=== PATIENT | female | born 1930 | race Caucasian/White ===

== ENCOUNTER 2017-02-27 19:34 | Inpatient (IN) | payer MEDICARE, OTHER ==
--- NOTE | ~2017-02-27 | DS ---
Discharge Summary [facility] [address] [facility] [place]. [address] NAME: JOSE DAVID THOMAS : [birth year] STATUS : DIS IN PAT#: [id number] AGE: 86 ADM/REG DATE : 02/28/17 MR#: [id number] REPORT SERV DATE: 03/15/17 DICTATED BY: ELIGIO PRIETO DATE: 03/14/17 REPORT STATUS : Draft TRANSCRIBED BY: JEFFRY DATE: 03/14/17 Data Collection from hospitalization DISCHARGE DIAGNOSES: 1. Left parietal CVA-acute. 2. Ataxia with a history of multiple falls (recent) likely secondary to left parietal CVA. 3. Wptacvxmzooq-lqyugbp-kaczugncjj. 4. Chronic low back pain. 5. Anxiety disorder. 6. Insomnia. 7. Osteoporosis. 8. Hyperlipidemia. CONSULTATION: 1. Dr. Octavio Fraire. 2. Dr. Gaurang Beasley. PROCEDURES: 1. Loop recorder implantation, 03/02/2017. 2. CT scan of the brain without contrast, 02/27/2017. 3. MRI of the brain without contrast, 02/28/2017. 4. MRI of the cervical spine, 02/28/2017. 5. Carotid blood flow study, 03/02/2017. DISCHARGE MEDICATIONS: Tawanna aspirin 325 mg daily, Lipitor 40 mg at bedtime, Plavix 75 mg daily, Tylenol suppository 325 mg every eight hours as needed, Prinivil 2.5 mg daily, vitamin B12 1000 mcg daily, vitamin D 2000 units daily, Caltrate 600 mg twice a day, Zyrtec 10 mg one tablet daily as needed for sneezing and runny nose, Wamsutter 5/325 half to one tablet as needed for pain. CONDITION AT DISCHARGE: Stable. DISPOSITION: The patient was discharged to [facility] on a mechanical soft diet with thin liquids and activities as instructed. She would follow up with Dr. Gaurang Beasley on 06/06/2017. HOSPITAL COURSE: This is an 86-year-old female who is a resident at [facility] and had had some recent falls according to her family. She had a total of six falls in the last 48 hours. Her family reports that this had not been witnessed so, therefore they were unsure if the patient hit her head. She had had some increased confusion. She was sent to the [facility] for further evaluation. She had a CT scan that did not show any acute bleed or changes and had been given Antivert. Her grandson reports that since her fall on Monday prior to admission, he had been at her bedside and had prevented three more falls. She was transferred to [facility] for further evaluation of her worsening falls, ataxia, and confusion. She was admitted to the hospital at this time for further evaluation and treatment. Upon admission, a CT scan of the brain without contrast was performed. No acute Discharge Summary [place] [id number] [facility] [place]. [address] NAME: JOSE DAVID THOMAS : [birth year] STATUS : DIS IN PAT#: [id number] AGE: 86 ADM/REG DATE : 02/28/17 MR#: [id number] REPORT SERV DATE: 03/15/17 DICTATED BY: ELIGIO PRIETO DATE: 03/14/17 REPORT STATUS : Draft TRANSCRIBED BY: MODL DATE: 03/14/17 intracranial pathology was identified. There was a stable old CVA, anterior left frontal lobe and left posterior parietal lobes. There was a stable large old CVA, right posterior parietal lobes. An MRI of the brain was requested. She would be premedicated with IV Ativan. IV fluids were continued for now. Admission creatinine was 1.22. She is at risk for acute kidney injury. She was currently on stroke protocol. Sequential devices and GABBY hose were placed for DVT prophylaxis. Plavix, aspirin, and simvastatin were continued. We would hold off on resuming CATHY inhibitor even though she was only on a low dose. Megace was going to be discontinued. Tylenol would be resumed for fever and pain control. Admission potassium level was 3.5. The patient was going to remain a DNR code status with limited intervention. The patient was seen by Dr. Octavio Fraire, regarding gait abnormality and concern for stroke versus TIA. The patient was noted to be ataxic. According to her family members, there was mild dysarthria. At her baseline, she does have vascular dementia. Depakote was going to be discontinued as this can cause ataxia issues. An MRI of the brain and cervical spine had been requested. Lab studies would be checked. Aspirin, Plavix, and simvastatin were continued. We were going to check thiamine, vitamin B12, folate, ammonia, CPK, free T4, Depakote level with the morning labs. MRI of the brain without contrast was performed. This showed acute ischemic infarct, superior left parietal lobe at the superior convexity along the midline falx, measuring up to 1.5 x 3.5 cm with no surrounding significant vasogenic edema, hemorrhagic conversion, or mass effect. There were advanced diffuse cerebral involutional changes and moderate deep white matter chronic microvascular ischemic changes. There were multifocal small old infarct. MRI of the cervical spine was also performed. The patient has moderate degenerative disk disease at C4-5 and mild degenerative disk disease at C5-C7. There is no cervical spine fracture or malalignment. There was mild focal central spinal stenosis, C4-5 on the basis of disk osteophyte formation. Orthostatic blood pressures were checked. Occupational Therapy evaluated the patient. On 03/01/2017, T-max was 98.6. Simvastatin has been stopped. Aspirin and Plavix were continued. Lipitor was continued. Echocardiogram was requested as well as a carotid Doppler study. It was felt that the patient may need a loop recorder. She was seen by Dr. Gaurang Beasley regarding loop recorder implant request and acute stroke. Imaging had demonstrated an acute ischemic infarct at the superior left parietal lobe without obvious cause defined to date. Given her history of strokes as well as her acute stroke during this admission and an otherwise fairly functional substrate, consultation placed for implantation of loop recorder. It was felt that she may very well benefit from a loop recorder. This was discussed with the patient and Neurology at length. If her echocardiogram and carotid Dopplers were negative, it would be reasonable to proceed with loop implantation to definitively exclude arrhythmic cause for recurrent strokes. Continued management of her hypertension as well chronic kidney disease by the primary team was also recommended. Physical Therapy evaluated the patient. On 03/02/2017, echocardiogram was performed as well as a carotid blood flow study. Findings were compatible with category 1 disease. Vertebral arteries were patent with antegrade flow. The patient underwent loop recorder implantation by Dr. Parnay Aguila. She tolerated this well. There were no complications. She had had a bowel movement. She did have low back pain. Blood pressure was stable. Discharge planning was performed. On 03/03/2017, she was alert and cooperative. She had no edema. Her abdomen was soft and nontender. Her lungs were clear. She denied shortness of breath, chest pain, nausea, vomiting, or abdominal pain. Hemoglobin A1c was 5.7. Discharge instructions were given. Due to her Discharge Summary [address] [address] NAME: JOSE DAVID THOMAS : [birth year] STATUS : DIS IN PAT#: [id number] AGE: 86 ADM/REG DATE : 02/28/17 MR#: [id number] REPORT SERV DATE: 03/15/17 DICTATED BY: ELIGIO PRIETO DATE: 03/14/17 REPORT STATUS : Draft TRANSCRIBED BY: JEFFRY DATE: 03/14/17 improved and stable condition, she was discharged to [facility] with the above-stated instructions. Information collected by: Cecy Kc I submit the above information as my discharge summary. TG/JEFFRY Eligio Prieto M.D. / [id number] CC: Will Asher MD [facility]
--- NOTE | ~2017-02-27 | CN ---
Consultation Report [facility] [address] [place]. [address] NAME: JOSE DAVID THOMAS : [birth year] STATUS : ADM Clarissa PAT#: [id number] AGE: 86 ADM/REG DATE : 02/27/17 MR#: [id number] REPORT SERV DATE: 02/28/17 DICTATED BY: DATE: REPORT STATUS : Draft TRANSCRIBED BY: MODL DATE: 02/28/17 NEUROLOGY CONSULTATION DATE OF CONSULTATION: 02/28/2017 REASON FOR CONSULT: Gait abnormality, concern for stroke versus TIA. HISTORY OF PRESENT ILLNESS: This is an 86-year-old female presented to [facility] on 02/27/2017 secondary to a three-day duration of problem walking. The patient's family reports that the patient is usually able to ambulate fairly well without significant problems and without needing to use an assistive device or a walker. The patient starting on 02/25/2017, was noted to have increase in a significant difficulty walking with the patient walking all over the place as if she is on a boat. The patient was also noted to be more disoriented, however, no focal deficit was noted. Family also noted patient to have some dysarthria. Patient was evaluated at [facility] and apparently sent back to assisted living facility and was subsequently brought to [facility] for evaluation. The patient since then has sustained several falls with the patient noted to have some chest soreness. The patient's family reports the patient does have baseline vascular dementia since the move to assisted living facility roughly two to three years ago. The patient was started on Depakote secondary to anxiety issues as well as difficulties adapting to [facility] living facility. The patient, otherwise, does not have any history of known seizure disorder or psychiatric issues. No other recent change in her medication was, otherwise, noted. The patient was also noted to have increase in anorexia for the past 12 months. PAST MEDICAL HISTORY: The does have history of prior strokes in the past, but does not appear to have significant focal weakness. The patient's past medical history is significant for history of stroke as well as a vascular dementia. No previous history of seizure was noted. The patient was also noted to have hypercholesterolemia as well as anxiety and hypertension. SOCIAL HISTORY: Denies current tobacco, alcohol, or recreational drug usage. FAMILY HISTORY: Significant for hypertension. REVIEW OF SYSTEMS: At the time of evaluation, review of systems was negative except for those mentioned in the HPI. ALLERGIES: THE PATIENT WAS NOTED TO HAVE MULTIPLE DRUG ALLERGIES INCLUDING CODEINE. HOME MEDICATIONS: Consist of Tylenol, aspirin, calcium carbonate, Zyrtec, vitamin D, Plavix, vitamin B12, Depakote, lisinopril, Megace, Zocor, and trazodone. Consultation Report [place] [id number] [facility] [place]. [address] NAME: JOSE DAVID THOMAS : [birth year] STATUS : ADM Clarissa PAT#: [id number] AGE: 86 ADM/REG DATE : 02/27/17 MR#: [id number] REPORT SERV DATE: 02/28/17 DICTATED BY: DATE: REPORT STATUS : Draft TRANSCRIBED BY: JEFFRY DATE: 02/28/17 PHYSICAL EXAMINATION: VITAL SIGNS: At time of evaluation, patient was noted to have vital signs with T-max of 98.4, heart rate of 51-77, respiration of 17-19, and blood pressure of 111 to 128 over 58 to 72. GENERAL: The patient is well developed, well nourished, in no acute distress. CARDIOVASCULAR: Regular rate and rhythm. No carotid bruits were otherwise auscultated. PULMONARY: Clear to auscultation bilaterally. NEUROLOGIC: Generally, the patient is alert, oriented to person, place, but not to year or month, which according to the family is the patient's baseline. The patient was noted to have some mild dysarthria. At the time of evaluation, was noted to have decreased attention span, difficulty comprehending or following complex commands with the patient noted to have significant difficulties with recall or working memory. The patient was, otherwise, noted to have no aphasia. At the time of evaluation, is able to follow simple commands without significant difficulties, some difficulties with registration. CRANIAL NERVES 2 THROUGH 12: Pupils equal, round, and reactive to light. Horizontal and vertical eye movement was noted with the patient noted to have decreased peripheral vision in the left. The patient was otherwise noted to have no nystagmus at the time of evaluation. The patient denies and did not complain of any diplopia. She was noted to have decreased nasolabial fold on the left, otherwise, midline tongue and symmetric palatal movement. Reports symmetrical facial sensation. Decreased hearing in bilateral ears. The patient was noted to have 5/5 bilateral upper and lower extremity strength. Mild resting tremor was noted especially in the right upper extremity, otherwise, the patient was not noted to have significant asterixis. Normal einxgv-ou-cogx examination without ataxia. Deep tendon reflex was 2+ in bilateral upper extremity, 1+ in bilateral lower extremity. Upgoing toe and bilateral plantar reflexes. The patient was noted to have wide-based gait as well as ataxia. Gait evaluation reports symmetrical sensation bilaterally. LABORATORY STUDIES: Demonstrated white blood cell count of 6.5, hemoglobin of 11.7, hematocrit of 36.2, and platelet count of 150. Chemistry panel: Sodium 137, potassium 3.5, chloride 108, bicarb 22, BUN of 17, creatinine 1.22, glucose of 105, calcium of 9.0. Serum cholesterol 129, HDL 52, LDL 59, triglyceride of 92. Hemoglobin A1c was noted to be 5.7. Urinalysis demonstrated negative leukocyte esterase, negative nitrite. CT scan of the brain was performed, which demonstrated generalized atrophy as well as previous stroke in the left temporoparietal area as well as the right parietal area. No acute process was otherwise seen. IMPRESSION: Gait abnormality. The patient was noted to be ataxic. On examination, with the patient's symptoms ongoing for the past three to four days and is stable, persistent, but without significant improvement. The patient was not noted to have any focal weakness. On examination or per family members, was noted to have mild dysarthria. At baseline, patient was noted to have a vascular dementia. We will discontinue Depakote as Depakote can cause ataxia issues. We will obtain MRI of the brain as well as a C-spine. Check laboratory studies. We will also obtain PT/OT to evaluate and treat. Concern for possible stroke versus medication side effect versus metabolic etiology. Consultation Report [place] [id number] [facility] [place]. [address] NAME: JOSE DAVID THOMAS : [birth year] STATUS : ADM Clarissa PAT#: [id number] AGE: 86 ADM/REG DATE : 02/27/17 MR#: [id number] REPORT SERV DATE: 02/28/17 DICTATED BY: DATE: REPORT STATUS : Draft TRANSCRIBED BY: MODL DATE: 02/28/17 RECOMMENDATIONS: 1. PT/OT to evaluate and treat. 2. MRI of the brain and C-spine without contrast. 3. Discontinue Depakote. 4. Aspirin, Plavix, and simvastatin for now. 5. We will check thiamine, vitamin B12, folate, ammonia, CPK, free T4, Depakote level with morning labs. [facility]/MODL Octavio Fraire MD / [id number] CC: Ubaldo Connor M.D.
--- NOTE | ~2017-02-27 | HP ---
History And Physical [place] [id number] [facility] [place]. [address] NAME: JOSE DAVID THOMAS : [birth year] STATUS : ADM IN [facility]#: [id number] AGE: 86 ADM/REG DATE : 02/28/17 MR#: [id number] REPORT SERV DATE: 02/28/17 DICTATED BY: ELIGIO PRIETO DATE: 02/28/17 REPORT STATUS : Draft TRANSCRIBED BY: MODIliana DATE: 02/28/17 DATE OF ADMISSION: 02/27/2017 CHIEF COMPLAINT: Multiple falls and poor balance. HISTORY OF PRESENT ILLNESS: The patient is an 86-year-old elderly female, who is a resident of [facility], had some recent fall per family, a total of six falls in the last 48 hours. Family reports that this had not been witnessed, so therefore unsure if the patient hit her head. The patient's grandson at the bedside reports the patient noted to have been walking like "she is boring." The patient has not had any complaint of loss of consciousness. The patient's grandson reports that the patient has had some increased confusion. She was sent to [facility] on Monday for further evaluation. She had a CT scan that did not show any acute bleed or changes and was given Antivert, family were instructed if not better or worse, the patient needs to be further evaluated. The patient's grandson reports that since her fall on Monday, he had been at her bedside and had prevented three more falls. Therefore the patient was transferred to [facility] for further evaluation of her worsening fall, ataxia, and confusion. The patient with vascular dementia. She is very pleasant, but is a poor historian. The patient's grandson is at the bedside giving details and confirmation of the patient medical, family, and social history. PAST MEDICAL HISTORY: Positive for ischemic vascular accident, hyperlipidemia, hypertension, chronic low back pain status post surgery, arthritis, anxiety in which the patient is on Depakote and trazodone. PAST SURGICAL HISTORY: Positive for section, hysterectomy, lumbar spine surgery with rods and plates in either 1997 or 1998, left hip repair on 11/2015. HOME MEDICATION: Include Tylenol p.r.n., aspirin 325 mg daily, calcium carbonate 600 mg twice a day, Zyrtec 10 mg daily, vitamin D 2000 units p.o. daily, Plavix 75 mg daily, vitamin B12 1000 mcg p.o. daily, Depakote 125 mg p.o. twice a day, lisinopril 2.5 mg p.o. daily, Megace 20 mg tablet, simvastatin 20 mg at bedtime, trazodone 50 mg at bedtime as needed. ALLERGIES: CODEINE CAUSES THE PATIENT TO BE SICK TO HER STOMACH, LACTOSE CAUSES THE PATIENT TO BE SICK TO HER STOMACH. SOCIAL HISTORY: The patient denies any history of alcohol or tobacco abuse or illicit drug use. The patient was a resident of [facility] for two years and had moved to the [facility] two weeks ago. The patient is retired, , has one son. FAMILY HISTORY: The patient's sister with diabetes. History And Physical [address] [address] NAME: JOSE DAVID THOMAS : [birth year] STATUS : ADM IN [facility]#: [id number] AGE: 86 ADM/REG DATE : 02/28/17 MR#: [id number] REPORT SERV DATE: 02/28/17 DICTATED BY: ELIGIO PRIETO DATE: 02/28/17 REPORT STATUS : Draft TRANSCRIBED BY: JEFFRY DATE: 02/28/17 REVIEW OF SYSTEMS: The patient with no history of glaucoma or cataract. She had had some prescription glasses, but does not use. The patient with no history of hearing loss or any difficulty swallowing. The patient with lower dentures. No recent upper respiratory infection reported. The patient with history of hypertension. No history of chest pain and the patient denies any chest pain. The patient denies any complaint of shortness of breath, is on trazodone for anxiety. The patient with history of poor appetite, but has had decreased p.o. intake the last few days. The patient's grandson reports the patient has been on appetite stimulants, but this had been ineffective. Report no recent nausea or vomiting. The patient denies any complaint of dysuria. The patient with history of arthritis. She has a history of chronic low back pain. The patient has a metal strip in her lumbar spine that was placed in 1987 or 1998. The patient reports she does not take regular pain medicine. The patient with history of osteoporosis and she receives Reclast infusion. The patient with no history of edema. The patient reports she has some bruising but does not have issue with bleeding. Grandson reports that patient's left chin appears to have redness sustained from her fall and likely had some of the bruising from her fall. The patient denies history of seizure. The patient's grandson reports the patient with history of stroke, has had dizziness and weakness the last 48 hours which he had reported having six falls. Also having low blood pressure with a systolic in the 80s. The patient reports history of headache but occasionally does not take medicine. The patient history with history of anxiety is on Depakote and trazodone. Also the patient with history of claustrophobia. The patient with no history of thyroid or diabetes. The patient is on aspirin and Plavix. Does easily bruise but no bleeding. PHYSICAL EXAMINATION: VITAL SIGN: Temp 98.0, pulse 77, respiratory rate 18, BP of 104/60, sat O2 96% on room air, weight 47.79 kilo. LABORATORY: Chest x-ray on 02/27/2017 showed large hiatal hernia. Similar to previous study. No acute process. CT of the brain without contrast, on 02/27 revealed no acute intracranial pathology identified, advanced diffuse cerebral intracranial changes and mild deep white chronic microvascular ischemic changes compared since 2007. Stable old CVA and anterior left frontal lobe and left posterior parietal lobe, stable. Large old CVA and right posterior parietal lobe, although new from 2006. Urinalysis, clear. Negative nitrite, wbc 1, negative leukocyte, protein of 30, and trace ketone. Hemoglobin A1c of 5.7. CPK 214, and CK-MB 2.7. Repeat CPK this morning was 18.1, CK-MB 1.8. Sodium 137, potassium 3.5, chloride 108, CO2 of 22, BUN 17, creatinine 1.22, and a GFR of 40, glucose of 105. WBC on 02/27 was 8.7, hemoglobin 12.7, hematocrit 38.5, and platelet of 81. / a.m. labs; WBC of 6.5, hemoglobin 11.7, hematocrit 36.2, and platelet of 150. INR 1.2. PT 14.6, and PTT 26.9. GENERAL: The patient is a pleasant, elderly female, in no acute distress noted. HEENT: Normocephalic, atraumatic. Nonicteric bilaterally. No pain on palpation of the neck. PERRL. NECK: Moves without pain. BREAST: No deformity noted. History And Physical [address] [address] NAME: JOSE DAVID THOMAS : [birth year] STATUS : ADM IN PAT#: [id number] AGE: 86 ADM/REG DATE : 02/28/17 MR#: [id number] REPORT SERV DATE: 02/28/17 DICTATED BY: ELIGIO PRIETO DATE: 02/28/17 REPORT STATUS : Draft TRANSCRIBED BY: JEFFRY DATE: 02/28/17 CVS: Regular rate and rhythm. Normal S1, S2. No murmurs. LUNGS: Clear to auscultation bilaterally. No wheezing. ABDOMEN: Soft, nontender. Positive bowel sounds throughout in four quadrants. Old scar noted in the mid abdomen consistent with surgical history. : The patient uses diaper. No discharged noted. Rectal: Not assessed. EXTREMITY: No edema noted in bilateral upper and lower extremity. Noted old ecchymosis in the left lower arm and left lower leg. MUSCULOSKELETAL: Generalized arthritic changes. Strength of 5/5 in bilateral upper and lower extremity. Gait, the patient stable with use of walker but did not assess without walker. SKIN: Left chin redness noted. Left lower arm and left lower leg ecchymosis, old but skin intact. Left upper arm with peripheral IV access, dry and intact. NEURO: Alert and oriented x3. No acute deficit noted. PSYCH: The patient is pleasant. No anxiety noted. ASSESSMENT: 1. Ataxia with multiple falls. 2. Generalized weakness, gait impairment. 3. History of ischemic vascular accident. 4. Hypertension, primary with recent low blood pressure episode. 5. Chronic low back pain status post low back surgery. 6. Anxiety disorder. 7. Hyperlipidemia. 8. Renal insufficiency likely secondary to poor p.o. intake/dehydration. 9. Mild hypokalemia. 10.Failure to thrive, chronic. PLAN: 1. Appreciate consult with Neurology. The patient seen by Neurology today. See initial consult. Reviewed head CT scan of the brain without contrast, on 02/27, see formal results. Question left posterior parietal lobe CVA for acute or chronic. The patient is scheduled for MRI of the brain. The patient with history of claustrophobia will need to premedicate with Ativan IV. 2. Continue IV fluid for now. The patient's admission creatinine was 1.22, which is a sign of renal insufficiency. We will continue fluid for now and monitor labs. The patient is at risk for acute kidney injury. 3. The patient currently on stroke protocol. We will place on sequential device and GABBY hose for DVT prophylaxis. Continue Plavix, aspirin, and simvastatin per Neurology. The patient is at risk for recurrent fall injury. 4. Continue to monitor BP. We will hold off on resuming CATHY inhibitor, even though she is only on low dose. The patient is at risk for further low BP. 5. The patient with history of failure to thrive. We will probably insure the patient have bedside swallow evaluation, and we will discontinue Megace which she takes at home given the patient's son reporting this is ineffective. 6. We will resume Tylenol p.r.n. for fever and pain control. 7. The patient is placed on electrolyte protocol. Admission potassium was 3.5, and we History And Physical [address] [address] NAME: JOSE DAVID THOMAS : [birth year] STATUS : ADM IN PAT#: [id number] AGE: 86 ADM/REG DATE : 02/28/17 MR#: [id number] REPORT SERV DATE: 02/28/17 DICTATED BY: ELIGIO PRIETO DATE: 02/28/17 REPORT STATUS : Draft TRANSCRIBED BY: JEFFRY DATE: 02/28/17 will plan to repeat lab. The patient is at risk for cardiac arrhythmia. 8. Addressed code status with the grandson and still desires the patient to be continued DNR with limited intervention. The patient post form is in chart, was completed on 02/22/2016. We will ensure inpatient POLST form completed. I discussed plan of care with the patient's grandson at the bedside and agree with current plan. The patient is referred to PT/OT for evaluation per neurologist. DICTATED BY: Juju Partida NP CLP/MODL Eligio Prieto M.D. / [id number] CC: Ubaldo Connor M.D.
--- NOTE | ~2017-02-27 | CN ---
Consultation Report [place] [id number] [facility] [place]. [address] NAME: JOSE DAVID THOMAS : [birth year] STATUS : ADM IN PAT#: [id number] AGE: 86 ADM/REG DATE : 02/28/17 MR#: [id number] REPORT SERV DATE: 03/01/17 DICTATED BY: GAURANG NAM DATE: 03/01/17 REPORT STATUS : Draft TRANSCRIBED BY: MODL DATE: 03/01/17 CONSULTATION DATE OF CONSULTATION: 03/01/2017 REASON FOR CONSULTATION: Loop recorder implant request, acute stroke. HISTORY OF PRESENT ILLNESS: Ms. Thomas is an 86-year-old female with a history of previous strokes, hyperlipidemia, hypertension, chronic lower back pain status post surgery, anxiety and CKD, who presented to [facility] two days ago after having days of difficulty with walking. She lives at [facility] where she functions relatively independently per her report. She is a fairly functional woman at baseline per her report, as well as in discussions with Neurology. She had been having increased falls over the past couple days preceding admission, prompting her visit to [facility] for further evaluation and care. She had imaging completed and was seen by Neurology which demonstrated an acute ischemic infarct of the superior left parietal lobe, without obvious cause defined to date. Given her history of strokes as well as her acute stroke during this admission, in an otherwise fairly functional substrate consultation was placed for implantation of a loop recorder. PAST MEDICAL HISTORY: As above. FAMILY HISTORY: Noncontributory for premature cardiovascular disease. SOCIAL HISTORY: The patient denies drinking alcohol, smoking, or doing drugs. She lives at the [facility]. She functions independently and without issue under normal circumstances. ALLERGIES: PER EMR. HOME MEDICATIONS: 1. Tylenol. 2. Aspirin. 3. Calcium. 4. Zyrtec. 5. Vitamin D. 6. Plavix. 7. Vitamin B12. 8. Depakote. 9. Lisinopril. 10.Megace. 11.Zocor. 12.Desyrel. Consultation Report [place] [id number] [place]. [address] NAME: JOSE DAVID THOMAS : [birth year] STATUS : ADM IN PAT#: [id number] AGE: 86 ADM/REG DATE : 02/28/17 MR#: [id number] REPORT SERV DATE: 03/01/17 DICTATED BY: GAURANG NAM DATE: 03/01/17 REPORT STATUS : Draft TRANSCRIBED BY: MODIliana DATE: 03/01/17 REVIEW OF SYSTEMS: As above, all other systems otherwise negative. PHYSICAL EXAMINATION: VITAL SIGNS: Blood pressure 164/92, pulse 54, sinus rhythm, temperature 97.9. GENERAL: Age appropriate alert and oriented x2 (not oriented to time). HEAD AND NECK: Normocephalic, atraumatic. Dry mucous membranes. LUNGS: Clear to auscultation bilaterally, no wheezes, rales or rhonchi. CV: Regular rhythm, normal S1/S2, no murmurs, rubs or gallops. ABD: Soft, non-tender, non-distended, no rebound or guarding. EXTREMITIES: Warm, dry. 1+ pulses throughout. SKIN: Warm, dry and intact; no rash. PERTINENT TEST FINDINGS: Potassium 3.7, creatinine 0.82 down from 1.22. Hemoglobin 11.7, white blood cell count 6.5. Troponin 0.04 x3. CK 168. An admission EKG demonstrates sinus rhythm with a ventricular rate of 73 beats per minute and occasional PVCs. There are no acute ischemic ST/T changes. Echocardiogram pending. Carotid Dopplers pending. Head imaging as above per HPI. IMPRESSION AND PLAN: Ms. Thomas is a pleasant 86-year-old female with a history of strokes, who presents with worsening gait/falls over the past two days in the setting of a new acute left parietal stroke of undetermined etiology. Given her relatively preserved functional status as well as unremarkable workup thus far (however, echo and carotid Doppler this admission still pending), I believe she may very well benefit from a loop recorder. I discussed this at length with Neurology as well as with the patient, and if her echocardiogram and carotid Dopplers are negative today, it will be reasonable for her to proceed with a loop implantation to definitively exclude arrhythmic cause for her recurrent strokes. Otherwise, continued management of hypertension as well as CKD per the primary team is recommended. ASTRID/JEFFRY Gaurang Nam MD / [id number] CC: Ubaldo Connor M.D.
[2017-02-27 16:00] LABS: BASOPHILS 0.2 %; BASOPHILS ABSOLUTE 0.02 10/3/uL (0.0-0.16); EOSINOPHILS 1.2 %; ER CBC TAT 0 Hrs 16 Mins; HEMOGLOBIN 12.7 g/dL (12.0-16.0); IMMATURE GRANULOCYTES 0.3 %; IMMATURE GRANULOCYTES ABSOLUTE 0.03 10/3/uL (0.0-0.11); LYMPHOCYTES 22.7 %; LYMPHOCYTES ABSOLUTE 1.97 10/3/uL (0.67-4.30); MEAN PLATELET VOLUME 9.9 fL (9.2-13.0); MONOCYTES 8.1 %; NEUTROPHILS 67.5 %; NEUTROPHILS ABSOLUTE 5.87 10/3/uL (2.02-8.40); RBC DISTRIBUTION WIDTH 14.2 % (12.0-16.0); RED CELL COUNT 4.35 10/6/uL (4.0-5.6); WHITE BLOOD CELLS 8.7 10/3/uL (4.5-10.5)
[2017-02-27 16:01] LABS: HEMATOCRIT 38.5 % (36.0-48.0); MANUAL DIFF NO %; MEAN CORPUSCULAR HEMOGLOB 29.2 pg (26.0-34.0); MEAN CORPUSCULAR VOLUME 88.5 fL (80-100); PLATELET COUNT 181 10/3/uL (150-400)
[2017-02-27 16:05] LABS: A/G RATIO 1.1 (0.7-1.9); ALBUMIN 3.9 G/DL (3.5-5.0); ALKALINE PHOSPHATASE 63 U/L (45-117); BUN (BLOOD UREA NITROGEN) 17 MG/DL (6-23); CHLORIDE, SERUM 108 MMOL/L (96-112); CO2 (CARBON DIOXIDE) 22 MMOL/L (24-34); CREATININE 1.22 MG/DL (0.55-1.02); GFR AFRICAN AMERICAN 46 ML/MIN (>=60); GFR NON AFRICAN AMERICAN 40 ML/MIN (>=60); GLOBULIN 3.7 G/DL (2.5-4.1); GLUCOSE, SERUM 105 MG/DL (60-99); POTASSIUM, SERUM 3.5 MMOL/L (3.5-5.3); SGOT(AST) 13 U/L (5-40); SGPT(ALT) 12 U/L (5-65); SODIUM, SERUM 137 MMOL/L (135-148); TOTAL BILIRUBIN 0.7 MG/DL (0-1.2); TOTAL PROTEIN 7.6 G/DL (6.0-8.5); TROPONIN I 0.03 NG/ML (<0.05)
[2017-02-27] MEDS ORDERED: ASABAYER PO (20:32)
[2017-02-27] MEDS ORDERED: ZYRTEC ALLGY10 MG PO (20:32)
[2017-02-27] MEDS ORDERED: PLAVIX PO (20:32)
[2017-02-27] MEDS ORDERED: PRIN2.5 PO (20:32)
[2017-02-27] MEDS ORDERED: MEG20 PO (20:33)
[2017-02-27] MEDS ORDERED: ZOCOR20 PO (20:34)
[2017-02-27] MEDS ORDERED: CALTRAT600 PO (20:35)
[2017-02-27] MEDS ORDERED: VITAMIN D2000 UNIT PO (20:35)
[2017-02-27] MEDS ORDERED: CYANO1000T PO (20:35)
[2017-02-27] MEDS ORDERED: DEPASPRINK PO (20:36)
[2017-02-27] MEDS ORDERED: TRAZ50 PO (20:37)
[2017-02-27] MEDS ORDERED: ACETSUP325 PO (20:37)
[2017-02-27 20:51] LABS: ASCORBIC ACID (UR NOT ORDER) NEG (NEG); BILIRUBIN, URINE NEGATIVE (NEG); ER URINALYSIS TAT 0 Hrs 15 Mins; KETONE, URINE TRACE MG/DL (NEG); LEUKOCYTE ESTERASE(NOT OR NEG (NEG); NITRITE (URINE) NEG (NEG); WBC (NOT ORDERED) (RFLEX) 1 (0-5)
[2017-02-28 01:12] LABS: BASOPHILS 0.2 %; BASOPHILS ABSOLUTE 0.01 10/3/uL (0.0-0.16); EOSINOPHILS 1.8 %; EOSINOPHILS ABSOLUTE 0.12 10/3/uL (0.0-0.53); HEMATOCRIT 36.2 % (36.0-48.0); HEMOGLOBIN 11.7 g/dL (12.0-16.0); IMMATURE GRANULOCYTES 0.2 %; IMMATURE GRANULOCYTES ABSOLUTE 0.01 10/3/uL (0.0-0.11); LYMPHOCYTES 23.6 %; LYMPHOCYTES ABSOLUTE 1.54 10/3/uL (0.67-4.30); MEAN CORPUS HGB CONC 32.3 g/dL (32.0-36.0); MEAN CORPUSCULAR HEMOGLOB 28.9 pg (26.0-34.0); MEAN CORPUSCULAR VOLUME 89.4 fL (80-100); MEAN PLATELET VOLUME 9.7 fL (9.2-13.0); MONOCYTES 6.9 %; MONOCYTES ABSOLUTE 0.45 10/3/uL (0.21-1.20); NEUTROPHILS 67.3 %; NEUTROPHILS ABSOLUTE 4.39 10/3/uL (2.02-8.40); PLATELET COUNT 150 10/3/uL (150-400); RED CELL COUNT 4.05 10/6/uL (4.0-5.6); WHITE BLOOD CELLS 6.5 10/3/uL (4.5-10.5)
[2017-02-28 01:13] LABS: MANUAL DIFF NO %
[2017-02-28 01:20] LABS: PARTIAL THROMBO TIME 26.9 SEC (22.5-37.2)
[2017-02-28 01:21] LABS: INTERNATIONAL NORMAL RATI 1.2 UNITS (-); PROTIME (NOT ORD) 14.6 SEC (12.0-14.5)
[2017-02-28 01:32] LABS: CHOL/HDL RATIO(NOT ORDER) 2.5 (0-5); CPK (IF ELEVATED MB BANDS) 214 U/L (0-200); HDL CHOLESTEROL 52 MG/DL (> 49); LDL CHOLESTEROL 59 MG/DL (< 130); NON-HDL CHOLESTEROL 77 MG/DL (< 160); TRIGLYCERIDE 92 MG/DL (< 150); TROPONIN I 0.04 NG/ML (<0.05)
[2017-02-28 01:33] LABS: CHOLESTEROL 129 MG/DL (< 200)
[2017-02-28 01:46] LABS: CK-MB 2.7 NG/ML
[2017-02-28 08:48] LABS: CPK 187 U/L (0-200); TROPONIN I 0.04 NG/ML (<0.05)
[2017-02-28 08:49] LABS: CK-MB 1.8 NG/ML
[2017-02-28 16:38] LABS: CK-MB 1.7 NG/ML; CPK 168 U/L (0-200); TROPONIN I 0.04 NG/ML (<0.05)
[2017-02-28 17:28] LABS: FREE T4 1.46 NG/DL (0.76-1.46)
[2017-02-28 17:30] LABS: FOLATE 8.1 NG/ML (>5.2)
[2017-03-01 04:53] LABS: CHLORIDE, SERUM 115 MMOL/L (96-112); CO2 (CARBON DIOXIDE) 22 MMOL/L (24-34); CREATININE 0.82 MG/DL (0.55-1.02); GFR AFRICAN AMERICAN 75 ML/MIN (>=60); GFR NON AFRICAN AMERICAN 64 ML/MIN (>=60); GLUCOSE, SERUM 86 MG/DL (60-99); PHOSPHORUS, SERUM 1.3 MG/DL (2.5-4.5); POTASSIUM, SERUM 3.7 MMOL/L (3.5-5.3)
[2017-03-01 04:56] LABS: BUN (BLOOD UREA NITROGEN) 9 MG/DL (6-23); CALCIUM, SERUM 7.8 MG/DL (8.5-10.4); SODIUM, SERUM 144 MMOL/L (135-148)
[2017-03-02 06:26] LABS: BASOPHILS 0.4 %; BASOPHILS ABSOLUTE 0.02 10/3/uL (0.0-0.16); EOSINOPHILS 3.7 %; EOSINOPHILS ABSOLUTE 0.18 10/3/uL (0.0-0.53); HEMATOCRIT 31.1 % (36.0-48.0); HEMOGLOBIN 10.6 g/dL (12.0-16.0); IMMATURE GRANULOCYTES 0.2 %; IMMATURE GRANULOCYTES ABSOLUTE 0.01 10/3/uL (0.0-0.11); LYMPHOCYTES ABSOLUTE 1.33 10/3/uL (0.67-4.30); MANUAL DIFF NO %; MEAN CORPUS HGB CONC 34.1 g/dL (32.0-36.0); MEAN CORPUSCULAR HEMOGLOB 29.2 pg (26.0-34.0); MEAN CORPUSCULAR VOLUME 85.7 fL (80-100); MEAN PLATELET VOLUME 9.6 fL (9.2-13.0); MONOCYTES 8.5 %; MONOCYTES ABSOLUTE 0.42 10/3/uL (0.21-1.20); NEUTROPHILS 60.2 %; NEUTROPHILS ABSOLUTE 2.97 10/3/uL (2.02-8.40); PLATELET COUNT 149 10/3/uL (150-400); RBC DISTRIBUTION WIDTH 14.4 % (12.0-16.0); RED CELL COUNT 3.63 10/6/uL (4.0-5.6); WHITE BLOOD CELLS 4.9 10/3/uL (4.5-10.5)
[2017-03-02 06:30] LABS: INTERNATIONAL NORMAL RATI 1.2 UNITS (-); PARTIAL THROMBO TIME 26.7 SEC (22.5-37.2); PROTIME (NOT ORD) 14.6 SEC (12.0-14.5)
[2017-03-02 06:37] LABS: BUN (BLOOD UREA NITROGEN) 7 MG/DL (6-23); CHLORIDE, SERUM 113 MMOL/L (96-112); CO2 (CARBON DIOXIDE) 21 MMOL/L (24-34); GFR AFRICAN AMERICAN 90 ML/MIN (>=60); GFR NON AFRICAN AMERICAN 78 ML/MIN (>=60); GLUCOSE, SERUM 85 MG/DL (60-99); POTASSIUM, SERUM 3.5 MMOL/L (3.5-5.3); SODIUM, SERUM 145 MMOL/L (135-148)
[2017-03-02 10:32] LABS: DEPAKENE (VALPROIC ACID) 4.1 MCG/ML (50.0-100.0)
[2017-03-03 18:35] LABS: THIAMINE 3.2 nmol/L (()); THIAMINE MONOPHOSPHATE 0.9 nmol/L (())
== END 2017-03-03 19:57 | DRG 41 ==
LOC: ER 19:34 → CDU1 22:24 → CDU2 23:25 → 1SO 03-01 17:01
PROVIDERS: Family Medicine; Hospitalist; Psychiatry & Neurology Neurology; Student in an Organized Health Care Education/Training Program
PROC: 0JH632Z Insertion of Monitoring Device into Chest Subcutaneous Tissue and Fascia, Percutaneous Approach (ICD-10-PCS; principal; 2017-03-02)
DX: I63.9 Cerebral infarction, unspecified (principal); N17.9 Acute kidney failure, unspecified; E86.0 Dehydration; F01.50 Vascular dementia, unspecified severity, without behavioral disturbance, psychotic disturbance, mood disturbance, and anxiety; I12.9 Hypertensive chronic kidney disease with stage 1 through stage 4 chronic kidney disease, or unspecified chronic kidney disease; E78.5 Hyperlipidemia, unspecified; G89.29 Other chronic pain; E87.6 Hypokalemia; R62.7 Adult failure to thrive; M54.5 Low back pain; F40.240 Claustrophobia; Z66 Do not resuscitate; N18.9 Chronic kidney disease, unspecified; M81.0 Age-related osteoporosis without current pathological fracture; R47.1 Dysarthria and anarthria; R29.810 Facial weakness; Z91.011 Allergy to milk products; K44.9 Diaphragmatic hernia without obstruction or gangrene; K59.00 Constipation, unspecified; R27.0 Ataxia, unspecified; F41.9 Anxiety disorder, unspecified; W18.30XA Fall on same level, unspecified, initial encounter; R29.6 Repeated falls; Z79.82 Long term (current) use of aspirin; Z79.02 Long term (current) use of antithrombotics/antiplatelets; Z79.899 Other long term (current) drug therapy; Z86.73 Personal history of transient ischemic attack (TIA), and cerebral infarction without residual deficits; Z88.5 Allergy status to narcotic agent
CPT/HCPCS: 33282; 70450; 70551; 71010; 72141; 72141-52; 80048; 80053; 80061; 80164; 81001; 82140; 82550; 82553; 82607; 82746; 83036; 83735; 84100; 84425; 84439; 84484; 85025; 85610; 85730; 87040; 93005; 93306; 93880; 97110-GO; 97110-GP; 97112-GO; 97116-GP; 97161-GP; 97165-GO; 97535-GO; 99285; A9270-GY; C1764; G8978-CK-GP; G8979-CJ-GP; G8987-CK-GO; G8988-CJ-GO; J0690; J2250; J3010